=== PATIENT | male | born 1960 | race Two or more races ===

== ENCOUNTER 2020-02-06 16:55 | Emergency (ER) | payer OTHER ==
[~2020-02-06] VITALS: Ht 182.9 cm; Wt 97.5 kg
[~2020-02-06 16:55] MED LIST: MOTRIN800 MG PO; PERCOCET 5/3251 TAB PO; PREDNISOLONE5 MG; PROVENTIL2 MG; XANAX0.25 MG
[2020-02-06] MEDS ORDERED: PLAVIX75 MG PO (17:12)
[2020-02-06] MEDS ORDERED: ADULT ASPIRIN81 MG PO (17:13)
[2020-02-06] MEDS ORDERED: TOPROL XL25 M1 PO (17:14)
[2020-02-06] MEDS ORDERED: SYNTHROID125 MCG PO (17:15)
== END 2020-02-06 20:00 | disposition home or self-care (01) ==
LOC: ER 16:55
DX: S40.011A Contusion of right shoulder, initial encounter (principal); S00.83XA Contusion of other part of head, initial encounter; S60.221A Contusion of right hand, initial encounter; S50.11XA Contusion of right forearm, initial encounter; M54.2 Cervicalgia; W18.39XA Other fall on same level, initial encounter; Y93.89 Activity, other specified; Y92.018 Other place in single-family (private) house as the place of occurrence of the external cause; Y99.8 Other external cause status

== ENCOUNTER 2020-05-02 14:02 | Emergency (ER) | payer OTHER ==
[~2020-05-02] VITALS: Ht 177.8 cm; Wt 99.8 kg
[~2020-05-02 14:02] MED LIST changes: +ADULT ASPIRIN81 MG PO; +PLAVIX75 MG PO; +SYNTHROID125 MCG PO; +TOPROL XL25 M1 PO
[2020-05-02] MEDS ORDERED: MUPIROCIN1 G1 TOP (15:39)
[2020-05-02] MEDS ORDERED: HIBICLENS118 ML TOP (15:39)
[2020-05-02] MEDS ORDERED: DUI500 PO (15:39)
== END 2020-05-02 15:50 | disposition home or self-care (01) ==
LOC: ER 14:02
DX: S81.822A Laceration with foreign body, left lower leg, initial encounter (principal); W45.8XXA Other foreign body or object entering through skin, initial encounter; Y93.89 Activity, other specified; Y92.89 Other specified places as the place of occurrence of the external cause; Y99.8 Other external cause status

== ENCOUNTER 2020-05-05 13:20 | Emergency (ER) | payer OTHER ==
[~2020-05-05] VITALS: Ht 177.8 cm; Wt 99.8 kg
[~2020-05-05 13:20] MED LIST changes: +DUI500 PO; +HIBICLENS118 ML TOP; +MUPIROCIN1 G1 TOP
== END 2020-05-05 16:41 | disposition home or self-care (01) ==
LOC: ER 13:20
DX: M79.662 Pain in left lower leg (principal)

== ENCOUNTER 2020-06-03 16:23 | Emergency (ER) | payer OTHER ==
[~2020-06-03] VITALS: Ht 180.3 cm; Wt 95.3 kg
== END 2020-06-03 19:20 | disposition home or self-care (01) ==
LOC: ER 16:23
DX: H46.8 Other optic neuritis (principal); G35 Multiple sclerosis

== ENCOUNTER 2020-06-30 11:02 | Emergency (ER) | payer OTHER ==
[~2020-06-30] VITALS: Ht 180.3 cm; Wt 97.1 kg
[2020-06-30] MEDS ORDERED: PREDNISONE5 MG/5 ML PO (11:18)
[2020-06-30] MEDS ORDERED: RAYOS5 MG PO (11:19)
[2020-06-30] MEDS ORDERED: ADULT LOW DOSE81 M1 PO (11:19)
== END 2020-06-30 19:31 | disposition home or self-care (01) ==
LOC: ER 11:02
DX: M79.662 Pain in left lower leg (principal); M79.661 Pain in right lower leg

== ENCOUNTER 2020-07-07 12:34 | Emergency (ER) | payer OTHER ==
[~2020-07-07] VITALS: Ht 180.3 cm; Wt 96.6 kg
[~2020-07-07 12:34] MED LIST changes: +ADULT LOW DOSE81 M1 PO; +PREDNISONE5 MG/5 ML PO; +RAYOS5 MG PO
[2020-07-07] MEDS ORDERED: NORFLEX100MG PO (16:11)
[2020-07-07] MEDS ORDERED: KETO10TA2 PO (16:11)
== END 2020-07-07 17:27 | disposition home or self-care (01) ==
LOC: ER 12:34
DX: M25.561 Pain in right knee (principal)

== ENCOUNTER → 2020-08-21 | Emergency (ER) | payer OTHER ==
[~2020-08-21] MED LIST changes: +KETO10TA2 PO; +NORFLEX100MG PO
== END | disposition left against medical advice (07) ==
LOC: ER 21:19
DX: Z53.20 Procedure and treatment not carried out because of patient's decision for unspecified reasons (principal)

== ENCOUNTER 2020-12-05 20:24 | Emergency (ER) | payer OTHER ==
[~2020-12-05] VITALS: Ht 177.8 cm; Wt 88.0 kg
[2020-12-05] MEDS ORDERED: OCREVUS300 MG/10 (20:50)
[2020-12-05] MEDS ORDERED: AMLODIPINE-OLM1 EAC2 (20:51)
[2020-12-05] MEDS ORDERED: TOPROL XL50 M1 PO (20:52)
[2020-12-05] MEDS ORDERED: TRAZODONE HCL150 MG (20:52)
[2020-12-05] MEDS ORDERED: ZOLPIDEM TART1.75 MG (20:52)
[2020-12-05] MEDS ORDERED: LIPITOR40 MG PO (20:53)
[2020-12-05] MEDS ORDERED: CLONAZEPAM2 MG PO (20:53)
== END 2020-12-06 | disposition home or self-care (01) ==
LOC: ER 20:24
DX: S00.83XA Contusion of other part of head, initial encounter (principal); S80.02XA Contusion of left knee, initial encounter; S60.221A Contusion of right hand, initial encounter; W18.09XA Striking against other object with subsequent fall, initial encounter; Y93.89 Activity, other specified; Y92.098 Other place in other non-institutional residence as the place of occurrence of the external cause; Y99.8 Other external cause status

== ENCOUNTER 2021-03-21 17:07 | Emergency (ER) | payer OTHER ==
[~2021-03-21] VITALS: Ht 180.3 cm; Wt 81.6 kg
[~2021-03-21 17:07] MED LIST changes: +AMLODIPINE-OLM1 EAC2; +CLONAZEPAM2 MG PO; +LIPITOR40 MG PO; +OCREVUS300 MG/10; +TOPROL XL50 M1 PO; +TRAZODONE HCL150 MG; +ZOLPIDEM TART1.75 MG
[2021-03-21] MEDS ORDERED: VUMERITY231 MG (17:15)
== END 2021-03-21 19:54 | disposition home or self-care (01) ==
LOC: ER 17:07
DX: M25.561 Pain in right knee (principal)

== ENCOUNTER 2021-10-09 19:17 | Emergency (ER) | payer OTHER ==
[~2021-10-09] VITALS: Ht 170.2 cm; Wt 74.8 kg
[~2021-10-09 19:17] MED LIST changes: +VUMERITY231 MG
== END 2021-10-10 00:07 | disposition home or self-care (01) ==
LOC: ER 19:17
DX: T50.905A Adverse effect of unspecified drugs, medicaments and biological substances, initial encounter (principal); Y92.9 Unspecified place or not applicable; A15.9 Respiratory tuberculosis unspecified

== ENCOUNTER → 2021-12-12 | Emergency (ER) | payer OTHER ==
[~2021-12-12] VITALS: Ht 177.8 cm; Wt 86.2 kg
[~2021-12-12] MED LIST changes: +VAZALORE81 MG
== END | disposition home or self-care (01) ==
LOC: ER 21:11
DX: B34.8 Other viral infections of unspecified site (principal); Z20.828 Contact with and (suspected) exposure to other viral communicable diseases

== ENCOUNTER → 2022-03-12 | Emergency (ER) | payer OTHER | END | disposition left against medical advice (07) | LOC: ER 19:27 | DX: Z53.21 Procedure and treatment not carried out due to patient leaving prior to being seen by health care provider (principal) ==